=== PATIENT | male | born 1950 | race Hispanic/Latino ===

== ENCOUNTER 2019-04-25 17:51 | Inpatient (IN) | payer OTHER ==
[~2019-04-25 17:51] MED LIST: Iopamidol-370 76% 500 ML 1 ML ONE
[2019-04-25 18:54] LABS: #Basophils 0.1 thou/uL (0.0-0.2); #Eosinphils 0.1 thou/uL (0.0-0.7); #Lymphocytes 1.4 thou/uL (1.20-3.40); #Monocytes 0.7 thou/uL (0.11-0.59); #Neutrophils 3.5 thou/uL (1.40-6.50); %Basophils 1.1 % (0.0-1.0); %Eosinophils 1.9 % (0.0-10.0); %Lymphocytes 24.1 % (21.0-51.0); %Monocytes 12.3 % (0.0-10.0); %Neutrophils 60.7 % (42.0-75.0); Hemoglobin 13.6 g/dL (14.0-18.0); Mean Corpuscular HGB CONC 34.6 g/dL (32.0-36.0); Mean Corpuscular Hemoglobin 33.4 pg (27.0-31.0); Mean Corpuscular Volume 96.3 fL (78.0-98.0); Platelet Count 153 thou/uL (130-400); RBC Distribution Width 14.2 % (11.5-14.5); Red Blood Cell (RBC) Count 4.08 mill/uL (4.70-6.10); White Blood Cell (WBC) Count 5.8 thou/uL (4.8-10.8)
[2019-04-25 19:00] LABS: Bacteria/HPF None Seen HPF (None Seen); Bilirubin Negative (Negative); Blood, Urine Trace (Negative); Clarity Clear (Clear); Glucose, Urine (Dipstick) Normal (Negative); Leukocyte Negative Leu/uL (Negative); Nitrite Negative (Negative); Protein, Urine (Dipstick) Negative (Neg-Trace); RBC/HPF 0-3 HPF (0-3); Squamous Epithelial 0-3 HPF (0-3); Urobilinogen Normal mg/dL (Less than 2); WBC/HPF 0-3 HPF (0-3)
[2019-04-25] MEDS ORDERED: Morphine 4 MG/ML VIAL ONE ×2 (19:10→22:29)
[2019-04-25 19:19] LABS: ALT (SGPT) 46 U/L (8-55); AST (SGOT) 62 U/L (5-34); Albumin 2.9 g/dL (3.4-4.8); Alkaline Phosphatase 116 U/L (40-110); Anion Gap 12 mmol/L (10-20); BUN (Urea Nitrogen) 5 mg/dL (8.4-25.7); Bilirubin, Total 2.9 mg/dL (0.2-1.2); Calc. Creatinine Clearance 0 mL/min (70-130); Calcium 8.3 mg/dL (7.8-10.44); Carbon Dioxide 22 mmol/L (23-31); Chloride 106 mmol/L (98-107); Estimated GFR-MDRD Greater than 90; Globulin 3.8 g/dL (2.4-3.5); Glucose 91 mg/dL (80-115); Lipase 19 U/L (8-78); Protein, Total 6.7 g/dL (5.8-8.1); Sodium 136 mmol/L (136-145)
--- NOTE | 2019-04-25 20:24 | CT ---
CT OF THE ABDOMEN AND PELVIS WITH IV CONTRAST INDICATION: Left-sided abdominal pain COMPARISON: None FINDINGS: ABDOMEN: Lung bases: Mild bibasilar atelectasis Liver: Cirrhotic morphology of liver. Gallbladder: Layered gallstones within a partially decompressed gallbladder Pancreas: Normal. Adrenal glands: Normal. Spleen: Enlarged measuring 15 cm. Kidneys and ureters: Normal. No hydronephrosis. Vasculature: There are mild vascular calcifications seen involving the visualized vasculature. Lymph nodes:No lymphadenopathy. Free fluid in abdomen:Moderate to prominent ascites PELVIS: Small and large bowel: Normal Appendix:Normal Bladder: Normal. Rectal and perirectal soft tissues:Normal. Reproductive structures: Normal. Free fluid in pelvis: Moderate Lymphadenopathy pelvis: No lymphadenopathy is evident. 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 There are bilate ral pars defects at L5 with grade 1 anterolisthesis of L5 on S1. There is a mild incomplete segmentation anomaly at L4. There is scattered degenerative and osteoarthritic changes. Soft tissues:There is a fluid-filled left inguinal hernia. There is mild anasarca IMPRESSION: 1. Cirrhosis with findings of portal hypertension. 2. Cholelithiasis 3. 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
--- NOTE | 2019-04-25 23:10 | PDOC.FPRHP ---
- History of Present Illness Chief Complaint: abdominal distension History of Present Illness: 68yo CM with known Hep C presents from skilled nursing with cc of abdominal distension for past 10 days. States this is new for him, has known Hep C but "hasn't caused him in problems in the past." States he was talking to the doctor at the skilled nursing about treatment but had never been started. Went to nurse this morning and they recommended him be seen at ED for further eval. Current endorses mild LUQ, pulling, abd pain, mild in nature. Denies any fever/chills, dyspnea, CP, dysuria , constipation, n/v, easing bruising or bleeding. Endorses few episodes of loose stools, no melena or hematochezia. ED Course: Dr. Rhoades consulted, rec admission for paracentesis in AM. Given morphine for pain. - Allergies/Adverse Reactions Allergies Allergy/AdvReac Type Severity Reaction Status Date / Time No Known Drug Allergies Allergy Verified 04/26/19 02:15 - Home Medications Medication Instructions Recorded Confirmed Type DULoxetine [Cymbalta] 60 mg PO DAILY 04/25/19 04/25/19 History Omeprazole 40 mg PO DAILY 04/25/19 04/26/19 History Potassium Chloride 10 meq PO DAILY 04/25/19 04/25/19 History Albuterol Sulfate [Proair 2 puff IH QID PRN 04/26/19 04/26/19 History Digihaler] Calcium Carbonate + Vit D [Oscal + 250 mg PO DAILY 04/26/19 04/26/19 History Vit D] - History PMHx: Hep C, GERD, depression PSHx: R inguinal hernia repair, R arm fracture repair, L shoulder repair FHx: Grandmother of CVA, father of lung cancer Social: Previous heavy drinker in past and "drank like a fish since he was a teenager." Previous IV drug abuse including heroin, and previous tob abuse, 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 Has been incarcerated for past 4 years. - Review of Systems General: reports: weight/appetite/sleep changes (weight gain). denies: fever/ chills, night sweats, fatigue Eyes: denies: vision changes ENT: denies: nasal congestion, rhinorrhea Respiratory: denies: cough, congestion, shortness of breath, exercise intolerance Cardiovascular: denies: chest pain, palpitation, edema Gastrointestinal: reports: abdominal pain. denies: nausea, vomiting, diarrhea, constipation Genitourinary: denies: incontinence, dysuria Skin: denies: rashes Neurological: denies: numbness, syncope Psychological: reports: depression. denies: anxiety - Vital signs BP: 160/93 HR: 91 RR: 21 Tmax: 99.2 Pox: 97% on RA Wt: 77kg - Physical Exam Constitutional: NAD, awake, alert and oriented, well developed, other (in shackles, pleasant) HEENT: PERRLA, EOMI, conjunctiva clear, no scleral icterus, MMM, oropharynx clear, other (poor dentition) Neck: supple, FROM Heart: RRR, normal S1/S2, no murmurs/rubs/gallops, pulses present, other (2+ pitting edema to lower thigh BL) Lungs: CTAB, no respiratory distress, good air movement, no rales/rhonchi, no wheezing Abdomen: bowel sounds present, other (distended and tense on exam, tympanic to percussion, mildly TTP worse on L as compared to R. No rebound or guarding, no caput medusa) Musculoskeletal: normal tone Neurological: no focal deficit Skin: no rash/lesions Heme/Lymphatic: no unusual bruising or bleeding, no purpura, no petechia Psychiatric: normal mood and affect, good judgment and insight, intact recent and remote memory FMR H&P: Results - Labs Result Diagrams: 04/26/19 05:21 04/26/19 05:21 Lab results: WBC 5.8 thou/uL (4.8-10.8) 04/25/19 18:47 Hgb 13.6 g/dL (14.0-18.0) L 04/25/19 18:47 Hct 39.3 % (42.0-52.0) L 04/25/19 18:47 MCV 96.3 fL (78.0-98.0) 04/25/19 18:47 Plt Count 153 thou/uL (130-400) 04/25/19 18:47 Neutrophils % 60.7 % (42.0-75.0) 04/25/19 18:47 Sodium 136 mmol/L (136-145) 04/25/19 18:47 Potassium 4.0 mmol/L (3.5-5.1) 04/25/19 18:47 Chloride 106 mmol/L (98-107) 04/25/19 18:47 Carbon Dioxide 22 mmol/L (23-31) L 04/25/19 18:47 BUN 5 mg/dL (8.4-25.7) L 04/25/19 18:47 Creatinine 0.62 mg/dL (0.7-1.3) L 04/25/19 18:47 Glucose 91 mg/dL (80-115) 04/25/19 18:47 Calcium 8.3 mg/dL (7.8-10.44) 04/25/19 18:47 Total Bilirubin 2.9 mg/dL (0.2-1.2) H 04/25/19 18:47 AST 62 U/L (5-34) H 04/25/19 18:47 ALT 46 U/L (8-55) 04/25/19 18:47 Alkaline Phosphatase 116 U/L (40-110) H 04/25/19 18:47 Serum Total Protein 6.7 g/dL (5.8-8.1) 04/25/19 18:47 Albumin 2.9 g/dL (3.4-4.8) L 04/25/19 18:47 Lipase 19 U/L (8-78) 04/25/19 18:47 Urine Ketones Negative mg/dL (Negative) 04/25/19 18:41 Urine Blood Trace (Negative) A 04/25/19 18:41 Urine Nitrite Negative (Negative) 04/25/19 18:41 Ur Leukocyte Esterase Negative Cheryl/uL (Negative) 04/25/19 18:41 Urine RBC 0-3 HPF (0-3) 04/25/19 18:41 Urine WBC 0-3 HPF (0-3) 04/25/19 18:41 Ur Squamous Epith Cells 0-3 HPF (0-3) 04/25/19 18:41 Urine Bacteria None Seen HPF (None Seen) 04/25/19 18:41 - Radiology Interpretation CT scan - abdomen Status: report reviewed by me (Cirrhosis with portal HTN, cholelithiasis, mild congenital scoliosis) FMR H&P: A/P - Problem List (1) Hepatitis C Current Visit: Yes Status: Acute Code(s): B19.20 - UNSPECIFIED VIRAL HEPATITIS C WITHOUT HEPATIC COMA Qualifiers: Viral hepatitis chronicity: chronic (2) Cirrhosis Current Visit: Yes Status: Acute Code(s): K74.60 - UNSPECIFIED CIRRHOSIS OF LIVER Qualifiers: Ascites presence: with ascites - Plan 68yo CM with h/o Hep C and h/o alcohol, IV drug, and tob abuse currently incarcerated presented for newly diagnosis cirrhosis #Cirrhosis with ascites, newly diagnosed - VSS and no s/s of SBP or acute abd infection - AST 62, ALT 46, Plt 153, Tbili 2.9 - known history of Hep C, will obtain Hep C RNA, Hep B screen, HIV and RPR - Suspected 2/2 Hep C and alcohol abuse - Ordered PT/PTT - CT Abd - cirrhosis with portal HTN, cholelithiasis - Dr. Rhoades consulted from ED, plan for paracentesis in AM, apprec recs and assistance #GERD - cont home prilosec #Depression - cont home cymbalta PCP: [facility]- Incarcerated Code: Full Diet: Regular IVF: SL VTE: SCD's - held anticoag for procedure in AM Disposition/LOS: Admit to medical FMR H&P: Upper Level - Pertinent history 68 year old male presents from skilled nursing with a 10 day history of abdominal distention and a pulling/pain in his abdomen which has been progressive over the last 10 days. Patient went to the skilled nursing nurse because his abdomen was "large ". Patient denies N/V, fever, chills, diarrhea, or constipation. Patient has known history of Hep C, untreated, history of IV drug use, alcohol abuse. He has not used since incarceration 5 years ago. Patient with PMH of depression and GERD. He has never been diagnosed with cirrhosis until today's ED visit. He has never had fluid accumulation in his abdomen before. Dr. Rhoades was consulted down in ED. He requested patient be admitted for paracentesis in AM. - Pertinent findings General: Alert and oriented x3. No acute distress. HEENT: Very poor dentition. MMM. Card: RRR w/ occasional skipped beats, no appreciable murmur Resp: CTA bilaterally, no acute distress Abdomen: Distended abdomen, non-tender to palpation, bowel sounds present Ext: 2+ pitting edema to level of thighs bilaterally, no cyanosis Skin: Warm and dry - Plan Date/Time: 04/25/19 0453 I, Lauren Dexter, have evaluated this patient and agree with findings/plan as outlined by programming internship resident. Pertinent changes/additions are listed here. Ascites 2/2 Hep C cirrhosis -New diagnosis of cirrhosis -Known history of Hep C, untreated -Dr. Rhoades consulted in ED, requested patient be admitted for paracentesis tomorrow -PT/PTT/INR ordered -Platelets WNL -Tylenol for pain, not to exceed 2g/day -Avoid NSAIDs Hep C, untreated -Now with progression to cirrhosis -No mention of masses to suggest HCC on CT abdomen/pelvis -See plan as above GERD -Continue home medication Depression -Continue home medication Elevated BP without diagnosis of HTN -Will continue to monitor -Start medication if BP remains high throughout stay Incarceration -Will obtain HIV, Hepatitis panel, RPR Alcohol abuse history IV drug abuse history -HIV, Hep panel pending Hyperbilirubinemia -2.9, trend -May be 2/2 hepatic congestion vs. cholelithiasis Cholelithiasis -Noted on CT abdomen/pelvis -Pt does not appear to be symptomatic from cholelithiasis at this point in time -Trend tbili Mild normocytic anemia -Likely 2/2 cirrhosis -Continue to monitor DVT PPX: SCD's Code status: Full Dispo: Obs on medical. Anticipate LOS <48 hours. Addendum - Attending - Attending Attestation Date/Time: 04/26/19 0371 I personally evaluated the patient and discussed the management with Dr. Dale Roman on 04/25/2019 I agree with the History, Examination, Assessment and Plan documented above with any addition or exceptions noted below - 68 yo male inmate with h/o chronic Hep C infection and GERD presents with 10 day history of increasing abdominal distension. Mild pain. Denies any fever/chills, N/V, SOB, or dysuria. Denies hematemesis, hematochezia or melena. PMH/PSH/Meds/SH reviewed and agree with resident's documentation. Afebrile VSS Exam repeated by me and agree with resident's findings. Labs: WBC=5.8, H/H=13.6/39.3, Hrk=012, BUN/Cr=5/0.62, t bili=2.9, AST/ALT=62/46, alb=2.9 CT abd=cirrhosis with findings of portal hypertension; moderate free fluid in the pelvis A/P: 1) Hep C infection now with evidence of cirrhosis and ascites- Place in obs. GI consulted from ER and plans for paracentesis on 04/26.
[2019-04-25] MEDS ORDERED: Calcium Carbonate 500 MG ChewTAB PO PRN (23:16)
[2019-04-26 00:10] LABS: INR-International Normal Ratio 1.3
[2019-04-26 00:42] VITALS: BMI 29.5
[2019-04-26 00:45] LABS: HBSAg Index 0.14 S/CO (0-0.99); HIV (1/2) Antibody/Antigen Non-Reactive (NonReactive); HIV 1/2 INDEX 0.11 S/CO (<1.00); Hep B Surf Ag Non-Reactive S/CO (NonReactive)
[2019-04-26] MEDS ORDERED: Acetaminophen 325 MG TAB PO PRN (00:51)
[2019-04-26] MEDS ORDERED: Acetaminophen 325 MG TAB PO SCH (01:00)
[2019-04-26 01:38] LABS: HBSAB Concentration 10.64 mIU/mL; Hep B Core Total Ab Reactive (NonReactive); Hep B Core Total Index 9.84 S/CO (0-0.79)
[2019-04-26] MEDS ORDERED: Acetaminophen 500 MG TAB PO PRN (02:42)
[2019-04-26 05:42] LABS: #Basophils 0.1 thou/uL (0.0-0.2); #Eosinphils 0.2 thou/uL (0.0-0.7); #Lymphocytes 1.7 thou/uL (1.20-3.40); #Neutrophils 3.7 thou/uL (1.40-6.50); %Basophils 0.8 % (0.0-1.0); %Eosinophils 3.2 % (0.0-10.0); %Lymphocytes 25.6 % (21.0-51.0); %Monocytes 14.7 % (0.0-10.0); %Neutrophils 55.7 % (42.0-75.0); Hemoglobin 12.9 g/dL (14.0-18.0); Mean Corpuscular HGB CONC 35.5 g/dL (32.0-36.0); Mean Corpuscular Hemoglobin 33.9 pg (27.0-31.0); Mean Corpuscular Volume 95.5 fL (78.0-98.0); Mean Platelet Volume 6.9 fL (7.4-10.4); Platelet Count 180 thou/uL (130-400); RBC Distribution Width 14.2 % (11.5-14.5); White Blood Cell (WBC) Count 6.7 thou/uL (4.8-10.8)
[2019-04-26 06:13] LABS: ALT (SGPT) 44 U/L (8-55); AST (SGOT) 62 U/L (5-34); Albumin 2.9 g/dL (3.4-4.8); Alkaline Phosphatase 106 U/L (40-110); Anion Gap 11 mmol/L (10-20); BUN (Urea Nitrogen) 8 mg/dL (8.4-25.7); Calc. Creatinine Clearance 131 mL/min (70-130); Carbon Dioxide 24 mmol/L (23-31); Chloride 106 mmol/L (98-107); Estimated GFR-MDRD Greater than 90; Globulin 3.6 g/dL (2.4-3.5); Glucose 95 mg/dL (80-115); Potassium 4.3 mmol/L (3.5-5.1); Protein, Total 6.5 g/dL (5.8-8.1); Sodium 137 mmol/L (136-145)
--- NOTE | 2019-04-26 06:23 | PDOC.FM ---
- Subjective Subjective: Pt is unchanged from last night. He has a strong hx of alcohol, tobacco. He is Hep C positive but is unsure how long. He developed symptoms within the last couple of weeks. Denies any prior symptoms. He denies fever, chills. Does have nausea, decreased appetite. - Objective Vital Signs & Weight: Vital Signs (12 hours) Temp Pulse Resp BP BP Pulse Ox 04/26/19 05:13 98.8 F 93 20 113/68 95 04/26/19 00:08 97.9 F 104 H 20 158/79 H 95 Weight Weight 85.366 kg Result Diagrams: 04/26/19 05:21 04/26/19 05:21 Phys Exam - Physical Examination Constitutional: NAD Respiratory: no wheezing, no rales, clear to auscultation bilateral Cardiovascular: RRR, no significant murmur Gastrointestinal: non-tender distended, positive bowel sounds, positive fluid wave Musculoskeletal: no edema, pulses present Dx/Plan (1) Hepatitis B Status: Acute (2) Cholelithiasis Code(s): K80.20 - CALCULUS OF GALLBLADDER W/O CHOLECYSTITIS W/O OBSTRUCTION Status: Acute (3) Cirrhosis Code(s): K74.60 - UNSPECIFIED CIRRHOSIS OF LIVER Status: Acute Qualifiers: Ascites presence: with ascites (4) Hepatitis C Code(s): B19.20 - UNSPECIFIED VIRAL HEPATITIS C WITHOUT HEPATIC COMA Status: Acute Qualifiers: Viral hepatitis chronicity: chronic - Plan Plan: 68yo CM with h/o Hep C and h/o alcohol, IV drug, and tob abuse currently incarcerated presented for newly diagnosis cirrhosis #Cirrhosis with ascites, newly diagnosed - VSS and no s/s of SBP or acute abd infection - AST 62, ALT 46, Plt 153, Tbili 2.9 - known history of Hep C RNA pending - Hep B likely previous infection, RPR indeterminate will reflex. - Suspected 2/2 Hep C and alcohol abuse - CT Abd - cirrhosis with portal HTN, cholelithiasis - Dr. Rhoades consulted from ED, plan for paracentesis in AM, apprec recs and assistance - liked discharge afterwards - meld score 14 #GERD - cont home prilosec #Depression - cont home cymbalta PCP: [facility]- Incarcerated Code: Full Diet: Regular IVF: SL VTE: SCD's - held anticoag for procedure in AM Disposition/LOS: Admit to medical Addendum - Attending - Attending Attestation Date/Time: 04/26/19 0230 I personally evaluated the patient and discussed the management with Dr. Bernard I agree with the History, Examination, Assessment and Plan documented above with any addition or exceptions noted below. Awaiting GI recs. Dispo pending results and procedures needed.
[2019-04-26 08:24] LABS: Syphilis Antibody INDETERMINATE (Nonreactive)
[2019-04-26] MEDS: DULoxetine 60 MG CAP PO SCH (09:46)
--- NOTE | 2019-04-26 17:37 | CON ---
DATE OF CONSULTATION: 04/26/2019 CHIEF COMPLAINT: Abdominal distention and diarrhea. HISTORY OF PRESENT ILLNESS: Mr. Sotelo is a 68-year-old man, who is a state prisoner, who developed abdominal distention and left-sided abdominal pain, which is sometimes sharp, sometimes dull, which is constant and lasting hours at a time. This all started 10 days ago. He has had loss of appetite with that. He has also developed diarrhea with any time he would eat. Stools were very loose and nonbloody. This has coincided with the abdominal swelling. He has a history of hepatitis C diagnosed in the . He has not been treated for the hepatitis C. He has had some black stools as well along with this diarrhea. His hemoglobin, however, is 13.6. He has had no prior history of ascites before this. No history of encephalopathy. He has had history of seizures after head injury. PAST MEDICAL HISTORY: Hepatitis C and cirrhosis of the liver; however, he does not know prior diagnosis of cirrhosis prior to this hospital stay; gastroesophageal reflux disease; osteoarthritis; and seizure disorder. PAST SURGICAL HISTORY: Shoulder surgery, inguinal hernia repair on the right, tonsillectomy, and bone graft to his right arm. FAMILY HISTORY: Positive for breast cancer and lung cancer. Negative for GI malignancy. SOCIAL HISTORY: He has significant alcohol use in the past, but not recently as he is incarcerated. He has been in and out of long term numerous times over the last several decades. He has used IV drugs in the past. No ongoing smoking or drug use. ALLERGIES: NO KNOWN DRUG ALLERGIES. MEDICATIONS: Medications prior to admission: 1. Omeprazole. 2. Duloxetine. 3. Albuterol. 4. Calcium. Current inpatient medications: 1. Duloxetine. 2. Pantoprazole. REVIEW OF SYSTEMS: Negative x10 systems reviewed except as stated in the history of present illness. PHYSICAL EXAMINATION: VITAL SIGNS: Temperature 98.5, pulse 90, blood pressure 153/80. GENERAL: He is in no acute distress. Alert and oriented x3. Eyes have no scleral icterus. Oropharynx has dry mucous membranes. There is no cervical or supraclavicular lymphadenopathy. LUNGS: Clear to auscultation bilaterally. HEART: Regular rate and rhythm without murmur. ABDOMEN: Distended with ascites. He has shifting dullness. Bowel sounds are active. EXTREMITIES: 1+ pitting lower extremity edema. NEUROLOGIC: No asterixis on neurological exam. LABORATORY DATA: White blood cell count 5.8, hemoglobin 13.6, platelets 153. INR 1.3. Creatinine 0.62. Bilirubin 2.9, AST 62, ALT 46, alkaline phosphatase 116, albumin 2.9. Lipase 19. Hepatitis B core total antibody is positive. Hepatitis B surface antibody is indeterminate. Hepatitis B surface antigen is negative. The patient has a history of chronic hepatitis C per his report. IMAGING STUDIES: CT scan of the abdomen and pelvis last night shows cirrhotic morphology of the liver. Gallstones were incidentally noted in the gallbladder. Moderate ascites was noted. IMPRESSION: 1. Cirrhosis of the liver secondary to chronic hepatitis C by history. He has decompensated with an elevated bilirubin, low albumin, and ascites. 2. New onset ascites. 3. Diarrhea. I suspect the diarrhea is related to bowel edema with the new onset ascites. We will rule out infectious source as well. RECOMMENDATIONS: 1. Ultrasound-guided paracentesis with cell count with differential, fluid total protein, fluid albumin to compare to serum albumin. Also, cytology. 2. For hepatoma screening, ultrasound of the liver and check alpha-fetoprotein. Also, include Dopplers with the liver ultrasound to rule out a new hepatic vein or portal vein thrombosis associated with the new onset ascites. 3. Check stool Clostridium difficile, ova and parasite, and culture. Job ID: [id number]
[2019-04-26] MEDS ORDERED: Prevnar 13-Val Conj/PF 0.5 ML SYRINGE IM ONE (21:00)
[2019-04-27 05:45] LABS: INR-International Normal Ratio 1.4; Prothrombin Time 16.8 SEC (12.0-14.7)
[2019-04-27 06:02] LABS: ALT (SGPT) 37 U/L (8-55); AST (SGOT) 52 U/L (5-34); Albumin 2.6 g/dL (3.4-4.8); Alkaline Phosphatase 95 U/L (40-110); Anion Gap 8 mmol/L (10-20); BUN (Urea Nitrogen) 8 mg/dL (8.4-25.7); Bilirubin, Total 2.1 mg/dL (0.2-1.2); Calc. Creatinine Clearance 139 mL/min (70-130); Calcium 7.7 mg/dL (7.8-10.44); Carbon Dioxide 26 mmol/L (23-31); Chloride 105 mmol/L (98-107); Estimated GFR-MDRD Greater than 90; Globulin 3.2 g/dL (2.4-3.5); Glucose 84 mg/dL (80-115); Potassium 3.8 mmol/L (3.5-5.1); Protein, Total 5.8 g/dL (5.8-8.1); Sodium 135 mmol/L (136-145)
--- NOTE | 2019-04-27 06:29 | PDOC.FM ---
- Subjective Subjective: Pt is doing well without complaints. He had 5 L drawn from abdomen. He denies nausea. He has an appetite. Denies fever, chills. - Objective Vital Signs & Weight: Vital Signs (12 hours) Temp Pulse Resp BP BP Pulse Ox 04/27/19 04:04 97.8 F 88 18 159/66 H 92 L 04/27/19 00:02 98.9 F 97 18 117/71 91 L 04/26/19 19:34 98.0 F 106 H 18 154/85 H 92 L Weight Weight 85.366 kg I&O: 04/25/19 04/26/19 04/27/19 06:59 06:59 06:59 Intake Total 240 Balance 240 Result Diagrams: 04/26/19 05:21 04/27/19 05:16 Phys Exam - Physical Examination Constitutional: NAD HEENT: PERRLA Respiratory: no wheezing, clear to auscultation bilateral Cardiovascular: RRR, no significant murmur Gastrointestinal: soft, non-tender, positive bowel sounds distended Musculoskeletal: no edema, pulses present Dx/Plan (1) Hepatitis B Status: Acute (2) Cholelithiasis Code(s): K80.20 - CALCULUS OF GALLBLADDER W/O CHOLECYSTITIS W/O OBSTRUCTION Status: Acute (3) Cirrhosis Code(s): K74.60 - UNSPECIFIED CIRRHOSIS OF LIVER Status: Acute Qualifiers: Ascites presence: with ascites (4) Hepatitis C Code(s): B19.20 - UNSPECIFIED VIRAL HEPATITIS C WITHOUT HEPATIC COMA Status: Acute Qualifiers: Viral hepatitis chronicity: chronic - Plan Plan: 68yo CM with h/o Hep C and h/o alcohol, IV drug, and tob abuse currently incarcerated presented for newly diagnosis cirrhosis #Cirrhosis with ascites, newly diagnosed - VSS and no s/s of SBP or acute abd infection - AST 62, ALT 46, Plt 153, Tbili 2.9 - known history of Hep C RNA pending - Hep B likely previous infection, RPR indeterminate will reflex. - Suspected 2/2 Hep C and alcohol abuse - CT Abd - cirrhosis with portal HTN, cholelithiasis - Dr. Rhoades consulted from ED, plan for paracentesis in AM, apprec recs and assistance - pending ascities studies after tap; pending stool labs - meld score 14 - start spironolactone, lasix # Elevated BP's - as above #GERD - cont home prilosec #Depression - cont home cymbalta PCP: [facility]- Incarcerated Code: Full Diet: Regular IVF: SL VTE: SCD's - held anticoag for procedure in AM Disposition/LOS: Admit to medical Addendum - Attending - Attending Attestation Date/Time: 04/27/19 1341 I personally evaluated the patient and discussed the management with Dr. Bernard I agree with the History, Examination, Assessment and Plan documented above with any addition or exceptions noted below. IR paracentesis today. Will await GI recommendations for disposition. Will start on spirnolactone and lasix for cirrhosis/ascities management.
[2019-04-27] MEDS ORDERED: Lidocaine 1% PF 5 ML VIAL ONE (07:37)
[2019-04-27] MEDS ORDERED: Sodium Bicarbonate 2.5 MEQ/5 ML VIAL ONE (07:37)
--- NOTE | 2019-04-27 09:07 | ULT ---
Ultrasound-guided paracentesis: 04/27/2019 HISTORY: Symptomatic ascites FINDINGS: Informed consent obtained prior to the procedure. Preprocedural imaging demonstrated signif icant ascites throughout the abdomen and pelvis. Right lower quadrant prepped and draped in normal sterile fashion and anesthetized with 1% buffered l idocaine. With direct sonographic guidance, 5 [place] Yueh catheter is advanced into the ascites and removal of the stylet yielded yellow fluid. 5 L were removed. The patient tolerated the procedure well. No postprocedural complications. IMPRESSION: Successful ultrasound-guided paracentesis yielding 5 L of yellow fluid. A diagnostic para centesis was requested and thus, a sample was sent to the laboratory for assessment.
[2019-04-27] MEDS: DULoxetine 60 MG CAP PO SCH (09:48)
--- NOTE | 2019-04-27 09:52 | ULT ---
HEPATIC DOPPLER: HISTORY: New onset ascites. Cirrhosis. COMPARISON: None. TECHNIQUE: Grayscale, color flow, Doppler imaging and spectral waveform analysis performed the liver. FINDINGS: There is increased echogenicity with regards to the hepatic parenchyma. There is lobulation with rega rds to the contour of the liver. No obvious masses or intrahepatic biliary dilatation. There is evidence of perihepatic fluid. Right hepatic lobe measures 14.7 cm. Spleen has a normal echotexture, measuring 14.8 x 8.4 x 6.8 cm. Sonographic evidence of cholelithiasis. Gallbladder wall is not thickened. No pericholecystic fluid. Negative Taylor's sign. Common bile duct diameter is 0.6 cm. Hepatic Doppler: There is patency and appropriate directional flow of the middle hepatic vein, left h epatic vein, right hepatic vein, left portal vein, main portal vein, right portal vein, hepatic artery, splenic vein and artery. IMPRESSION: 1. Normal hepatic Doppler. 2. Ascites. 3. Increase echogenicity of liver with lobulation of the hepatic margin compatible with history of ci rrhosis. 4. Sonographic evidence of cholelithiasis. 5. Splenomegaly. Transcribed Date/Time: 04/27/2019 10:09 AM
[2019-04-27 11:15] LABS: RBC Count-Automated (BF) 4146 /cumm; WBC/Nucleated-Auto (BF) 1217 uL
[2019-04-27 11:57] LABS: BF Color Yellow; Body Fluid Source Peritoneal Fluid; Clarity Hazy (Clear); Tube # EDTA
[2019-04-27 11:59] LABS: BF Segmented Neutrophils 24 %; Cell Count Non Hematic 70 %; Lymphocytes 6 %
[2019-04-27] MEDS ORDERED: Spironolactone 25 MG TAB PO SCH (12:00)
[2019-04-27] MEDS ORDERED: Furosemide 20 MG TAB PO SCH (12:00)
[2019-04-27] MEDS ORDERED: Albumin 25% 25 GM/100 ML BOT IVPB ONE (14:03)
[2019-04-27] MEDS: cefTRIAXone\\ROCEPHIN 2 GM in Sodium Chloride 0.9% 100 ML IVPB SCH (14:51)
[2019-04-27] MEDS ORDERED: Albumin 25% 25 GM/100 ML BOT IVPB SCH (15:00)
--- NOTE | 2019-04-27 19:09 | PRG ---
DATE OF SERVICE: 04/27/2019 SUBJECTIVE: He still has some abdominal pain in left upper quadrant with some abdominal swelling. He has no nausea or vomiting. OBJECTIVE: VITAL SIGNS: Temperature 97.8, pulse 98, and blood pressure 119/72. GENERAL: He is in no acute distress. Alert and oriented x3. He has no asterixis on neurological exam. LUNGS: Clear to auscultation bilaterally. HEART: Regular rate and rhythm without murmur. ABDOMEN: Soft. Mild distention with ascites. Paracentesis with 5 L removed today. He is nontender currently. EXTREMITIES: 1+ pitting lower extremity edema. IMPRESSION: 1. Spontaneous bacterial peritonitis. His absolute neutrophil count when corrected for red blood cells in the fluid is around 292. He has been started on IV ceftriaxone for that. Given that his creatinine is 0.6 and his bilirubin is less than 4, he should not require high-dose albumin infusion at this point. However, given that he did have a large volume paracentesis today and also was started on diuretics this morning. I will give 50 g of albumin today to help protect his kidneys. He will require 5 days of antibiotics. Depending on his response, he may be able to switch to oral antibiotics after 3 days, which could be transitioned to Cipro 500 mg twice daily. 2. Ascites and lower extremity edema. He has been started on furosemide 20 mg daily. Spironolactone has been started at 25 mg daily. After he gets further out from his paracentesis, then we monitor his renal function for a couple of days during treatment of spontaneous bacterial peritonitis. If he tolerates all these things, then the spironolactone could be increased to 100 mg daily. 3. Cirrhosis of the liver. 4. History of chronic hepatitis C. RECOMMENDATIONS: 1. Ceftriaxone IV. 2. Monitor trend of his creatinine, post paracentesis and after initiation of diuretics. 3. Low-salt diet. Job ID: [id number]
[2019-04-28 05:38] LABS: INR-International Normal Ratio 1.4; Prothrombin Time 17.3 SEC (12.0-14.7)
[2019-04-28 05:55] LABS: Anion Gap 9 mmol/L (10-20); BUN (Urea Nitrogen) 9 mg/dL (8.4-25.7); Calc. Creatinine Clearance 142 mL/min (70-130); Calcium 7.8 mg/dL (7.8-10.44); Carbon Dioxide 24 mmol/L (23-31); Chloride 107 mmol/L (98-107); Estimated GFR-MDRD Greater than 90; Glucose 93 mg/dL (80-115); Potassium 4.1 mmol/L (3.5-5.1); Sodium 136 mmol/L (136-145)
--- NOTE | 2019-04-28 06:39 | PDOC.FM ---
- Subjective Subjective: Pt is doing well today. He feels better with alleviation of fluid from his abdomen. He has a diet and tolerated breakfast. He denies LE swelling, sob, lightheadedness, syncope. - Objective Vital Signs & Weight: Vital Signs (12 hours) Temp Pulse Resp BP Pulse Ox 04/28/19 03:52 98.6 F 86 17 126/67 94 L 04/27/19 23:11 98.8 F 102 H 18 149/75 H 96 04/27/19 20:00 94 L 04/27/19 19:00 99.2 F 104 H 18 104/60 93 L Weight Weight 85.366 kg I&O: 04/26/19 04/27/19 04/28/19 06:59 06:59 06:59 Intake Total 240 240 Balance 240 240 Result Diagrams: 04/28/19 05:19 04/28/19 05:19 Phys Exam - Physical Examination Constitutional: NAD HEENT: PERRLA Neck: no JVD, full ROM Respiratory: no wheezing, clear to auscultation bilateral Cardiovascular: RRR, no significant murmur Gastrointestinal: non-tender, positive bowel sounds Distended, positive fluid wave Musculoskeletal: no edema, pulses present Psychiatric: normal affect, A&O x 3 Dx/Plan (1) Hepatitis B Status: Acute (2) Cholelithiasis Code(s): K80.20 - CALCULUS OF GALLBLADDER W/O CHOLECYSTITIS W/O OBSTRUCTION Status: Acute (3) Cirrhosis Code(s): K74.60 - UNSPECIFIED CIRRHOSIS OF LIVER Status: Acute Qualifiers: Ascites presence: with ascites (4) Hepatitis C Code(s): B19.20 - UNSPECIFIED VIRAL HEPATITIS C WITHOUT HEPATIC COMA Status: Acute Qualifiers: Viral hepatitis chronicity: chronic - Plan Plan: 68yo CM with h/o Hep C and h/o alcohol, IV drug, and tob abuse currently incarcerated presented for newly diagnosis cirrhosis #Cirrhosis with ascites, newly diagnosed # SBP - Ascites total neutrophil count 292, > 250 cut off for SBP. SAAG - 1.4, likely portal HTN. Discussed with Dr. Fisher. Received Albumin 50 gm yesterday to balance starting lasix for renal protection/increase perfusion to kidneys. Stat ceftriaxone x 5 days; could switch from ceftriaxone to PO med after day 3 of treatment but will discuss with Dr. Fisher before changes. - AST 62, ALT 46, Plt 153, Tbili 2.9 - known history of Hep C RNA pending - Hep B likely previous infection, RPR indeterminate will reflex. - Suspected 2/2 Hep C and alcohol abuse - CT Abd - cirrhosis with portal HTN, cholelithiasis - GI consulted; appreciate recs - meld score 14 - start spironolactone, lasix # Elevated BP's - as above #GERD - cont home prilosec #Depression - cont home cymbalta PCP: [facility]- [facility]arcer[facility] Code: Full Diet: Regular IVF: SL VTE: SCD's, will restart lovenox Disposition/LOS: Admit to inpatient medical for abx treatment Addendum - Attending - Attending Attestation Date/Time: 04/28/19 1221 I personally evaluated the patient and discussed the management with Dr. Bernard I agree with the History, Examination, Assessment and Plan documented above with any addition or exceptions noted below. GI concerned for SBP. patient has been asymptomatic this hospital stay. Had 1-2 episodes of loose stool [employer]. Will continue rocephin IV for 3 days and switch to cipro per GI recs. further dispo pending cirrhosis eval.
[2019-04-28 06:46] LABS: #Eosinphils 0.1 thou/uL (0.0-0.7); #Lymphocytes 0.9 thou/uL (1.20-3.40); #Monocytes 0.6 thou/uL (0.11-0.59); #Neutrophils 2.6 thou/uL (1.40-6.50); %Basophils 0.8 % (0.0-1.0); %Lymphocytes 21.2 % (21.0-51.0); %Monocytes 13.3 % (0.0-10.0); %Neutrophils 61.8 % (42.0-75.0); Hemoglobin 11.8 g/dL (14.0-18.0); Mean Corpuscular HGB CONC 34.3 g/dL (32.0-36.0); Mean Corpuscular Hemoglobin 33.4 pg (27.0-31.0); Mean Corpuscular Volume 97.4 fL (78.0-98.0); Platelet Count 110 thou/uL (130-400); Platelet Morphology Comment Appears Decreased; RBC Distribution Width 14.4 % (11.5-14.5); Red Blood Cell (RBC) Count 3.55 mill/uL (4.70-6.10); White Blood Cell (WBC) Count 4.1 thou/uL (4.8-10.8)
[2019-04-28] MEDS: Spironolactone 25 MG TAB PO SCH (08:38)
[2019-04-28] MEDS: DULoxetine 60 MG CAP PO SCH (08:38)
[2019-04-28] MEDS: Furosemide 20 MG TAB PO SCH (08:38)
[2019-04-28] MEDS ORDERED: Enoxaparin Sodium 40 MG/0.4 ML SYRINGE SC SCH (12:30)
[2019-04-28] MEDS: cefTRIAXone\\ROCEPHIN 2 GM in Sodium Chloride 0.9% 100 ML IVPB SCH (15:01)
--- NOTE | 2019-04-28 15:26 | PRG ---
DATE OF SERVICE: 04/28/2019 SUBJECTIVE: Mr. Sotelo has some discomfort in his abdomen, but otherwise no acute events. OBJECTIVE: VITAL SIGNS: Temperature is 97.9, pulse 95, blood pressure 130/75. GENERAL: He is in no acute distress. Alert and oriented x3. LUNGS: Clear to auscultation bilaterally. HEART: Regular rate and rhythm without murmur. ABDOMEN: Soft. Mild tenderness in the left abdomen without guarding. Bowel sounds are present. He has moderate distention of the abdomen with ascites. NEUROLOGIC: He has no asterixis on neurological exam. LABORATORY DATA: White blood cell count 4.1, hemoglobin 11.8, platelets 110. INR 1.4. Creatinine 0.62. IMPRESSION: 1. Spontaneous bacterial peritonitis. He will receive his second dose of ceftriaxone this afternoon. 2. Ascites. He has been started on low-dose spironolactone and furosemide. He is status post paracentesis with 5 L removed. He did receive albumin yesterday following the paracentesis. His renal function is stable today. 3. Cirrhosis and hepatitis C. RECOMMENDATIONS: 1. He should receive five days of antibiotics. He could potentially switch over to oral ciprofloxacin on Wednesday. 2. Low-salt diet. 3. Continue furosemide at 20 mg daily. The spironolactone could be increased to 100 mg daily after a couple of days once his creatinine remained stable on the current regimen and following the paracentesis yesterday. 4. He could potentially discharge on Wednesday or Wednesday. Job ID: [id number]
[2019-04-29] MEDS ORDERED: Loperamide HCl 2 MG CAP PO SCH (02:30)
--- NOTE | 2019-04-29 06:31 | PDOC.FM ---
- Subjective Subjective: Pt c/o of not having a shower since he has been here, and would really like to clean himself. There is no objection to this. Notified staff for help. Pt states he has had some bowel incontinence yesterday. States his abd pain is better since fluid taken off, but still fluid present. - Objective MAR Reviewed: Yes Vital Signs & Weight: Vital Signs (12 hours) Temp Pulse Resp BP Pulse Ox 04/29/19 00:00 98.7 F 04/28/19 20:00 99.0 F 90 20 117/68 93 L Weight Weight 85.366 kg I&O: 04/27/19 04/28/19 04/29/19 06:59 06:59 06:59 Intake Total 240 240 Balance 240 240 Result Diagrams: 04/28/19 05:19 04/28/19 05:19 Phys Exam - Physical Examination Constitutional: NAD HEENT: moist MMs Neck: supple, full ROM Respiratory: no wheezing, no rales, no rhonchi, clear to auscultation bilateral Cardiovascular: RRR, no significant murmur, no rub Gastrointestinal: soft, non-tender, no distention, positive bowel sounds Musculoskeletal: pulses present, edema present (2 + in hands and B LE's) in shackles Neurological: non-focal, moves all 4 limbs Psychiatric: normal affect, A&O x 3 Skin: normal turgor, cap refill <2 seconds Dx/Plan (1) Cirrhosis Code(s): K74.60 - UNSPECIFIED CIRRHOSIS OF LIVER Status: Acute Qualifiers: Ascites presence: with ascites (2) Cholelithiasis Code(s): K80.20 - CALCULUS OF GALLBLADDER W/O CHOLECYSTITIS W/O OBSTRUCTION Status: Acute (3) Hepatitis B Status: Acute (4) Hepatitis C Code(s): B19.20 - UNSPECIFIED VIRAL HEPATITIS C WITHOUT HEPATIC COMA Status: Acute Qualifiers: Viral hepatitis chronicity: chronic - Plan Plan: 68yo CM with h/o Hep C and h/o alcohol, IV drug, and tob abuse currently incarcerated presented for newly diagnosis cirrhosis #Cirrhosis with ascites, newly diagnosed # SBP - Ascites total neutrophil count 292, > 250 cut off for SBP. SAAG - 1.4, likely portal HTN. Discussed with Dr. Fisher. Received Albumin 50 gm yesterday to balance starting lasix for renal protection/increase perfusion to kidneys. Stat ceftriaxone x 5 days; could switch from ceftriaxone to PO med after day 3 of treatment but will discuss with Dr. Fisher before changes. - Paracentesis removal of 5 L. Many neutrophils. - AST 62, ALT 46, Plt 153, Tbili 2.9 - known history of Hep C RNA pending - Hep B likely previous infection, RPR indeterminate will reflex. - Suspected 2/2 Hep C and alcohol abuse - CT Abd - cirrhosis with portal HTN, cholelithiasis - GI consulted; appreciate recs - meld score 14 - start spironolactone, lasix, increase spironolactone to 100 mg on Wednesday. - Transition to oral cipro on Wednesday. # Elevated BP's - as above #GERD - cont home prilosec #Depression - cont home cymbalta PCP: [facility] Code: Full Diet: Regular IVF: SL VTE: SCD's, will restart lovenox Disposition/LOS: Admit to inpatient medical for abx treatment
[2019-04-29 08:09] LABS: #Basophils 0.1 thou/uL (0.0-0.2); #Eosinphils 0.2 thou/uL (0.0-0.7); #Lymphocytes 1.5 thou/uL (1.20-3.40); #Monocytes 0.6 thou/uL (0.11-0.59); #Neutrophils 2.8 thou/uL (1.40-6.50); %Basophils 1.6 % (0.0-1.0); %Eosinophils 3.6 % (0.0-10.0); %Lymphocytes 28.9 % (21.0-51.0); %Monocytes 10.9 % (0.0-10.0); Hemoglobin 13.8 g/dL (14.0-18.0); Mean Corpuscular HGB CONC 33.2 g/dL (32.0-36.0); Mean Corpuscular Hemoglobin 32.4 pg (27.0-31.0); Mean Corpuscular Volume 97.5 fL (78.0-98.0); Mean Platelet Volume 7.3 fL (7.4-10.4); Platelet Count 151 thou/uL (130-400); RBC Distribution Width 14.5 % (11.5-14.5); Red Blood Cell (RBC) Count 4.27 mill/uL (4.70-6.10); White Blood Cell (WBC) Count 5.2 thou/uL (4.8-10.8)
[2019-04-29] MEDS: Enoxaparin Sodium 40 MG/0.4 ML SYRINGE SC SCH (08:15)
[2019-04-29] MEDS: Furosemide 20 MG TAB PO SCH (08:15)
[2019-04-29] MEDS: Spironolactone 25 MG TAB PO SCH (08:15)
[2019-04-29] MEDS: DULoxetine 60 MG CAP PO SCH (08:16)
--- NOTE | 2019-04-29 10:35 | PRG ---
DATE OF SERVICE: 04/29/2019 SUBJECTIVE: Mr. Sotelo is feeling okay. He is tolerating his diet. Bowel movements are loose, but nonbloody. He has been afebrile. He has some intermittent positional left-sided abdominal discomfort. OBJECTIVE: VITAL SIGNS: Temperature 98.5, pulse 83, blood pressure 132/78, and oxygen saturation 93% on room air. GENERAL: No acute distress, sitting up in bed comfortably. HEART: Regular rate and rhythm. LUNGS: Clear to auscultation bilaterally. ABDOMEN: Distended with ascites. Bowel sounds are present. Soft, nontender to palpation throughout. EXTREMITIES: No peripheral edema. LABORATORY STUDIES: WBC 5.2, hemoglobin 13.8, and platelets 151. INR 1.4. Sodium 136, potassium 4.1, BUN 9, creatinine 0.62, and calcium 7.8. ASSESSMENT AND PLAN: 1. Ascites, new onset. 2. Spontaneous bacterial peritonitis, now on day 3 of IV ceftriaxone. 3. Cirrhosis and hepatitis C. Stick with the plan for 5 days of antibiotics. He will get his third dose of ceftriaxone today. Tomorrow, antibiotics could be switched over to oral ciprofloxacin. Continue diuretics. Note that renal function has remained stable. Continuing with furosemide 20 mg daily. Spironolactone could be increased to 100 mg daily. I anticipate that the patient could potentially be discharged tomorrow or the following day on oral ciprofloxacin. GI will sign off, but please call anytime with questions or concerns. Job ID: [id number]
[2019-04-29] MEDS: cefTRIAXone\\ROCEPHIN 2 GM in Sodium Chloride 0.9% 100 ML IVPB SCH (15:25)
--- NOTE | 2019-04-29 18:06 | PRG ---
DATE OF SERVICE: 04/29/[address] Please see note [address] Niyah Tavera, for which I agree. The patient was seen, evaluated, discussed, and examined with the residents by bedside. This gentleman got 5 L paracentesis off him done on the . He is now symptomatically doing a lot better. It does look like a bacterial peritonitis, although then the cultures come back showing anything yet, but he is on Rocephin to cover it and likely, it can be able to be switched to p.o. Cipro tomorrow and then may get out of here on higher doses of Lasix and spironolactone. Job ID: [id number]
[2019-04-30 05:22] LABS: Mean Corpuscular Volume 98.8 fL (78.0-98.0)
[2019-04-30 06:09] LABS: Hemoglobin 12.7 g/dL (14.0-18.0); Mean Corpuscular HGB CONC 33.9 g/dL (32.0-36.0); Mean Corpuscular Hemoglobin 33.5 pg (27.0-31.0); RBC Distribution Width 14.5 % (11.5-14.5); Red Blood Cell (RBC) Count 3.78 mill/uL (4.70-6.10); White Blood Cell (WBC) Count 3.6 thou/uL (4.8-10.8)
[2019-04-30] MEDS ORDERED: Cipro 250 MG TAB PO SCH (06:40)
--- NOTE | 2019-04-30 06:42 | PDOC.FM ---
- Subjective Subjective: Pt had X5 diarrhea episodes yesterday. c/o LUQ abd pain under his ribs. Denies CP, SOB. No overnight events. - Objective MAR Reviewed: Yes Vital Signs & Weight: Vital Signs (12 hours) Temp Pulse Resp BP Pulse Ox 04/29/19 21:02 92 L 04/29/19 20:00 98.9 F 90 18 124/71 92 L Weight Weight 85.366 kg I&O: 04/28/19 04/29/19 04/30/19 06:59 06:59 06:59 Intake Total 240 1440 Balance 240 1440 Result Diagrams: 04/30/19 04:41 04/30/19 07:11 Phys Exam - Physical Examination Constitutional: NAD HEENT: moist MMs Neck: supple, full ROM Respiratory: no wheezing, no rales, no rhonchi, clear to auscultation bilateral Cardiovascular: RRR, no significant murmur Gastrointestinal: soft, no distention, positive bowel sounds TT palpation LUQ Musculoskeletal: pulses present Neurological: non-focal, moves all 4 limbs Psychiatric: normal affect, A&O x 3 Skin: no rash, cap refill <2 seconds Dx/Plan (1) Cirrhosis Code(s): K74.60 - UNSPECIFIED CIRRHOSIS OF LIVER Status: Acute Qualifiers: Ascites presence: with ascites (2) Cholelithiasis Code(s): K80.20 - CALCULUS OF GALLBLADDER W/O CHOLECYSTITIS W/O OBSTRUCTION Status: Acute (3) Hepatitis B Status: Acute (4) Hepatitis C Code(s): B19.20 - UNSPECIFIED VIRAL HEPATITIS C WITHOUT HEPATIC COMA Status: Acute Qualifiers: Viral hepatitis chronicity: chronic - Plan Plan: 68yo CM with h/o Hep C and h/o alcohol, IV drug, and tob abuse currently incarcerated presented for newly diagnosis cirrhosis #Cirrhosis with ascites, newly diagnosed # SBP - Ascites total neutrophil count 292, > 250 cut off for SBP. SAAG - 1.4, likely portal HTN. Discussed with Dr. Fisher. Received Albumin 50 gm yesterday to balance starting lasix for renal protection/increase perfusion to kidneys. Stat ceftriaxone x 5 days; could switch from ceftriaxone to PO med after day 3 of treatment but will discuss with Dr. Fisher before changes. - Paracentesis removal of 5 L. Many neutrophils. - AST 62, ALT 46, Plt 153, Tbili 2.9 - known history of Hep C RNA pending - Hep B likely previous infection, RPR indeterminate will reflex. - Suspected 2/2 Hep C and alcohol abuse - CT Abd - cirrhosis with portal HTN, cholelithiasis - GI consulted; appreciate recs - meld score 14 - start spironolactone, lasix, increase spironolactone to 100 mg on Wednesday. - Transition to oral cipro today. # Elevated BP's - as above #GERD - cont home prilosec #Depression - cont home cymbalta PCP: [facility] Code: Full Diet: Regular IVF: SL VTE: SCD's, will restart lovenox Disposition/LOS: Admit to inpatient medical for abx treatment
[2019-04-30] MEDS ORDERED: Ciprofloxacin 500 MG TAB PO SCH ×2 (07:00→20:00)
[2019-04-30 07:03] LABS: #Eosinphils 0.2 thou/uL (0.0-0.7); #Lymphocytes 1.1 thou/uL (1.20-3.40); #Monocytes 0.4 thou/uL (0.11-0.59); #Neutrophils 1.9 thou/uL (1.40-6.50); %Basophils 1.1 % (0.0-1.0); %Eosinophils 4.3 % (0.0-10.0); %Lymphocytes 30.3 % (21.0-51.0); %Monocytes 11.9 % (0.0-10.0); %Neutrophils 52.4 % (42.0-75.0); Mean Platelet Volume 7.1 fL (7.4-10.4); Platelet Count 110 thou/uL (130-400); Platelet Morphology Comment Appears Decreased
[2019-04-30 07:33] LABS: ALT (SGPT) 36 U/L (8-55); AST (SGOT) 58 U/L (5-34); Albumin 3.1 g/dL (3.4-4.8); Alkaline Phosphatase 93 U/L (40-110); Anion Gap 10 mmol/L (10-20); BUN (Urea Nitrogen) 8 mg/dL (8.4-25.7); Bilirubin, Total 1.4 mg/dL (0.2-1.2); Calc. Creatinine Clearance 133 mL/min (70-130); Calcium 8.4 mg/dL (7.8-10.44); Carbon Dioxide 25 mmol/L (23-31); Chloride 107 mmol/L (98-107); Estimated GFR-MDRD Greater than 90; Globulin 3.3 g/dL (2.4-3.5); Glucose 89 mg/dL (80-115); Potassium 4.4 mmol/L (3.5-5.1); Protein, Total 6.4 g/dL (5.8-8.1); Sodium 138 mmol/L (136-145)
[2019-04-30] MEDS: Enoxaparin Sodium 40 MG/0.4 ML SYRINGE SC SCH (07:41)
[2019-04-30] MEDS: Furosemide 20 MG TAB PO SCH (07:41)
[2019-04-30] MEDS: DULoxetine 60 MG CAP PO SCH (07:42)
[2019-04-30 07:50] VITALS: BP 146/77; TEMP 97.6
[2019-04-30] MEDS ORDERED: Spironolactone 25 MG TAB PO SCH (08:00)
[2019-04-30] MEDS ORDERED: Lactinex Tablet PO SCH (09:00)
--- NOTE | 2019-04-30 11:48 | DIS ---
DATE OF ADMISSION: 04/26/2019 DATE OF DISCHARGE: 04/30/2019 RESIDENT: Niyah Tavera DO ADMITTING ATTENDING: Sheri Acosta MD DISCHARGE ATTENDING: Jose Alejandro Cuello MD CONSULT: Gastroenterology. PROCEDURES: Paracentesis on 04/27, which showed a pleural fluid analysis of neutrophils 292. Culture, no growth today. DIAGNOSES: 1. Cirrhosis with ascites, newly diagnosed. 2. Spontaneous bacterial peritonitis, SBP. 3. Elevated blood pressures. 4. Gastroesophageal reflux disease. 5. Depression. DISCHARGE MEDICATIONS: 1. Ciprofloxacin 500 mg p.o. b.i.d. for 9 more tabs. 2. Lasix 20 mg p.o. daily. 3. Spironolactone 100 mg p.o. daily. 4. Lactobacillus one tab p.o. daily. 5. Cymbalta 60 mg p.o. daily. 6. Omeprazole 40 mg p.o. daily. 7. Albuterol sulfate 2 puffs inhaled q.i.d. p.r.n. for shortness of breath or wheezing. 8. Calcium plus vitamin D 250 mg p.o. daily. 9. Potassium chloride 10 mEq p.o. daily. HISTORY OF PRESENT ILLNESS/HOSPITAL COURSE: Mr. Sotelo is a 68-year-old male with a past medical history of hepatitis C, coming from retirement with abdominal distention on the that had been present for about 10 days. This is new for him. He has known that he has had hepatitis C, but has not caused him any problems in the past and he had never had treatment for the hepatitis C. GI was consulted, recommending a paracentesis and the patient was admitted to the hospital. The paracentesis was consistent with SBP. The patient was started on Rocephin. The patient was also started on Lasix and spironolactone for the cirrhosis. The patient developed diarrhea, most likely from the antibiotics. The patient tolerated the procedure well. He was also found to have positive hepatitis B core, but antigen negative , antibody [place] zone. His HIV negative. RPR was indeterminate with T pallidum particle agglutination reactive. RPR titer nonreactive. This is indicative of a previous treated infection of syphillis. The patient has a history of IV drug abuse in the past. This is likely why he has not sought treatment for the hepatitis C. This is a new diagnosis of hepatitis B. Peritoneal fluid was hazy yellow. White blood cell count 1217 , red blood cell in fluid was 4146, percent neutrophils 24%. The patient was transitioned to oral Cipro 500 mg b.i.d. for a total course of 5 days of this and spironolactone 100 mg as well as Lasix 20 mg daily. He is cleared for discharge back to retirement. DISPOSITION: Stable upon discharge. DISCHARGE INSTRUCTIONS: 1. Location: To retirement. 2. Diet: Heart healthy, low-sodium. 3. Activity: As tolerated. 4. Followup: Follow up with primary care in 3 days. He will need a repeat basic metabolic panel as starting new medications of spironolactone and Lasix to monitor potassium. Job ID: [id number] [facility]
--- NOTE | 2019-04-30 17:41 | PRG ---
DATE OF SERVICE: 04/30/[address] Please see [address] Niyah Tavera, for which I agree. The patient is seen, evaluated, discussed and examined with the residents by bedside. This gentleman is doing fine, able to switch him to p.o. antibiotics for SBP. He is tolerating higher dose of Lasix and spironolactone and it seems like the ascites is not reforming as the abdomen is totally benign. Minimal findings of ascites and likely will be able to go back to long-term, where he will be followed by their doctors and we will continue the same diuretics and 5 days of Cipro. Job ID: [id number]
== END 2019-04-30 15:13 | DRG 372 ==
LOC: ERS 17:51 → EEVIPCON 04-26 00:20 → OBSVTOIN 04-26 00:20 → T4-A 04-26 00:20
PROVIDERS: ADMIT Family Medicine; ATTEND Family Medicine
PROC: 0W9G3ZZ Drainage of Peritoneal Cavity, Percutaneous Approach (ICD-10-PCS; principal; 2019-04-27)
DX: K65.2 Spontaneous bacterial peritonitis (principal); R18.8 Other ascites; K52.1 Toxic gastroenteritis and colitis; B16.9 Acute hepatitis B without delta-agent and without hepatic coma; K74.69 Other cirrhosis of liver; K21.9 Gastro-esophageal reflux disease without esophagitis; F32.9 Major depressive disorder, single episode, unspecified; B18.2 Chronic viral hepatitis C; M19.90 Unspecified osteoarthritis, unspecified site; G40.909 Epilepsy, unspecified, not intractable, without status epilepticus; K80.20 Calculus of gallbladder without cholecystitis without obstruction; R03.0 Elevated blood-pressure reading, without diagnosis of hypertension; T36.95XA Adverse effect of unspecified systemic antibiotic, initial encounter; Z79.899 Other long term (current) drug therapy; Z79.51 Long term (current) use of inhaled steroids; Z87.891 Personal history of nicotine dependence
CPT/HCPCS: 36415; 49083; 74177; 76705; 80048; 80053; 81003; 81015; 82042; 83630; 83690; 84157; 85025; 85060; 85610; 85730; 86593; 86704; 86706; 86780; 87045; 87046; 87070; 87205; 87324; 87328; 87329; 87340; 87389; 87427; 87449; 87521; 89051; 96374; 96376; J0696; J1650; J2001; J2270; J3490; P9047; Q9967

== ENCOUNTER 2019-07-16 04:11 | Emergency (ER) | payer OTHER ==
[2019-07-16 04:45] LABS: Hemoglobin 5.3 g/dL (14.0-18.0)
[2019-07-16 04:54] LABS: ALT (SGPT) 489 U/L (8-55); AST (SGOT) 938 U/L (5-34); Albumin 1.1 g/dL (3.4-4.8); Alkaline Phosphatase 86 U/L (40-110); Anion Gap 25 mmol/L (10-20); BUN (Urea Nitrogen) 31 mg/dL (8.4-25.7); Bilirubin, Total 1.2 mg/dL (0.2-1.2); Calc. Creatinine Clearance 0 mL/min (70-130); Calcium 6.1 mg/dL (7.8-10.44); Chloride 105 mmol/L (98-107); Estimated GFR-MDRD 66; Globulin 1.3 g/dL (2.4-3.5); Glucose 112 mg/dL (80-115); Protein, Total 2.4 g/dL (5.8-8.1); Sodium 131 mmol/L (136-145)
[2019-07-16 04:57] LABS: Carbon Dioxide 9 mmol/L (23-31); Potassium 7.5 mmol/L (3.5-5.1)
[2019-07-16 05:08] LABS: D-Dimer Test Greater than 20.00 *mcg/mL (0.27-0.43); Fibrinogen Less than 30 mg/dL (253-463); INR-International Normal Ratio 13.8; PTT Greater than 250.0 SEC (22.9-36.1)
[2019-07-16 05:12] LABS: Band 29 % (5-11); Eosinophils 1 % (0-10); Lymphocytes 17 % (21-51); MDiff Complete? YES; Mean Corpuscular HGB CONC 32.6 g/dL (32.0-36.0); Mean Corpuscular Hemoglobin 33.4 pg (27.0-31.0); Mean Platelet Volume 4.6 fL (7.4-10.4); Metamyelocyte 3 % (0-0); Monocytes 5 % (0-10); Neutrophil 45 % (42-75); Nucleated RBC 1 % (0); Platelet Count 72 thou/uL (130-400); Platelet Morphology Comment Appears Decreased; RBC Distribution Width 14.5 % (11.5-14.5); Red Blood Cell (RBC) Count 1.58 mill/uL (4.70-6.10); White Blood Cell (WBC) Count 8.6 thou/uL (4.8-10.8)
[2019-07-16] MEDS ORDERED: Atropine Sulfate 1 mg/10 ml Syringe ONE (09:29)
[2019-07-16] MEDS ORDERED: EPINEPHrine 1 MG/10 ML Abboject SYRINGE ONE (09:29)
[2019-07-16] MEDS ORDERED: Calcium Chloride 1 GM/10 ML Abboject SYRINGE ONE (09:29)
[2019-07-16] MEDS ORDERED: Sodium Bicarb 50 MEQ/50 ML Abboject 8.4% SYRINGE ONE (09:29)
== END 2019-07-16 04:37 | disposition expired ==
LOC: ERS 04:11
DX: I46.9 Cardiac arrest, cause unspecified (principal); D65 Disseminated intravascular coagulation [defibrination syndrome]; K74.60 Unspecified cirrhosis of liver; K21.9 Gastro-esophageal reflux disease without esophagitis
CPT/HCPCS: 36416; 85379; 85384; 92950; 96374; 96375; J0171; J0461